=== PATIENT | female | born 1965 | race African-American/Black ===

== ENCOUNTER 2022-04-17 15:30 | Emergency (ER) | payer BC, OTHER ==
[~2022-04-17] VITALS: Ht 157.5 cm; Wt 69.0 kg
[2022-04-17 15:33] VITALS: BP 136/60
== END 2022-04-17 18:19 | disposition left against medical advice (07) ==
LOC: ER 15:30
DX: Z53.21 Procedure and treatment not carried out due to patient leaving prior to being seen by health care provider (principal)

== ENCOUNTER 2022-09-26 11:15 | Emergency (ER) | payer BC, OTHER ==
[~2022-09-26] VITALS: Ht 167.6 cm; Wt 67.3 kg
[2022-09-26 14:48] VITALS: BP 115/75
== END 2022-09-26 16:09 | disposition left against medical advice (07) ==
LOC: ER 11:46
DX: Z53.21 Procedure and treatment not carried out due to patient leaving prior to being seen by health care provider (principal)